=== PATIENT | male | born 1985 | race Caucasian/White ===

== ENCOUNTER 2021-03-30 12:47 | Emergency (ER) | payer OTHER ==
[2021-03-30] MEDS ORDERED: MEDROL DOSEPAK 24 MG PO (15:49)
[2021-03-30] MEDS ORDERED: CYCLOBENZAPRINE10 MG PO (15:49)
== END 2021-03-30 16:00 | disposition home or self-care (01) ==
LOC: ER1 12:47
DX: M51.86 Other intervertebral disc disorders, lumbar region (principal); Z79.899 Other long term (current) drug therapy
CPT/HCPCS: 72131; 96372; 99283; J1100; J1885